=== PATIENT | male | born 2000 | race Caucasian/White ===

== ENCOUNTER 2020-09-26 19:50 | Emergency (ER) | payer OTHER ==
[2020-09-26 23:24] VITALS: BP 127/84
[2020-09-27 00:52] LABS: Basophils % (Auto) 0.5 % (0.0-1.8); Eosinophils # (Auto) 0.1 K/mm3 (0.0-0.4); Eosinophils % (Auto) 2.1 % (0.0-4.3); Hematocrit 48.2 % (35.5-45.6); Hemoglobin 16.4 gm/dl (11.8-15.2); Lymphocytes # (Auto) 2.5 K/mm3 (1.2-5.4); Lymphocytes % (Auto) 35.6 % (13.4-35.0); Mean Corpuscular HGB Conc 34 % (32-34); Mean Corpuscular Volume 94 fl (84-94); Monocytes # (Auto) 0.6 K/mm3 (0.0-0.8); Platelet Count 264 K/mm3 (140-440); Red Blood Count 5.14 M/mm3 (3.65-5.03); Red Cell Distribution Width 12.6 % (13.2-15.2)
[2020-09-27 00:54] LABS: Bilirubin,Urine NEG (Negative); Blood,Urine NEG (Negative); Color,Urine Yellow (Yellow); Mucus,Urine 1+ /HPF; Protein,Urine <15 mg/dL mg/dL (Negative); RBC,Urine < 1.0 /HPF (0.0-6.0); Urobilinogen,Urine < 2.0 mg/dL (<2.0)
--- NOTE | 2020-09-27 02:33 | Emergency Department Report ---
ED Abdominal Pain HPI - General Chief Complaint: Abdominal Pain Stated Complaint: GROIN PAIN Source: patient Mode of arrival: Ambulatory Limitations: No Limitations - History of Present Illness Initial Comments: Patient is a 19-year-old -[place] male with no past medical history presents to the ED with complaint of acute onset persistent diffuse upper abdominal pain intermittently for the last 2 days ago, worse in the last 8 hours. Patient states that he initially thought that he was constipated and took some laxatives and had significant diarrhea afterwards. Patient states that the abdominal pain has been intermittent and feels like gas moving around in his abdomen. Patient denies nausea, vomiting, dizziness, syncope, constipation, chest pain, shortness of breath, testicular pain, dysuria, urinary frequency and urgency, hematuria, fever and chills. MD Complaint: abdominal pain (Diffuse upper abdominal pain) -: Sudden, days(s) (2) Location: LUQ, epigastric Radiation: none Migration to: no migration Severity: mild Severity scale (0 -10): 3 Quality: cramping, dull Consistency: intermittent Improves With: nothing Worsens With: nothing Context: other (Suspected gas pain) Associated Symptoms: denies other symptoms, anorexia. denies: nausea, vomiting, diarrhea, chills, dysuria, hematemesis, hematochezia, hematuria, syncope, other - Related Data Previous Rx's Medication Instructions Recorded Last Taken Type Dicyclomine [Bentyl] 20 mg PO Q6H PRN #30 tablet 09/27/20 Unknown Rx Famotidine [Pepcid] 20 mg PO BID #60 tablet 09/27/20 Unknown Rx Ondansetron [Zofran Odt] 4 mg PO Q8HR PRN #5 tab.rapdis 09/27/20 Unknown Rx ED Review of Systems ROS: Stated complaint: GROIN PAIN Other details as noted in HPI Constitutional: denies: chills, fever Eyes: denies: eye pain, eye discharge, vision change ENT: denies: ear pain, throat pain Respiratory: denies: cough, shortness of breath, wheezing Cardiovascular: denies: chest pain, palpitations Endocrine: no symptoms reported Gastrointestinal: abdominal pain. denies: nausea, vomiting, diarrhea Genitourinary: denies: urgency, dysuria Musculoskeletal: denies: back pain, joint swelling, arthralgia Skin: denies: rash, lesions Neurological: denies: headache, weakness, paresthesias Psychiatric: denies: anxiety, depression Hematological/Lymphatic: denies: easy bleeding, easy bruising ED Past Medical Hx - Medications Home Medications: Home Medications Medication Instructions Recorded Confirmed Last Taken Type Dicyclomine [Bentyl] 20 mg PO Q6H PRN #30 tablet 09/27/20 Unknown Rx Famotidine [Pepcid] 20 mg PO BID #60 tablet 09/27/20 Unknown Rx Ondansetron [Zofran Odt] 4 mg PO Q8HR PRN #5 tab.rapdis 09/27/20 Unknown Rx ED Physical Exam - General Limitations: No Limitations General appearance: alert, in no apparent distress - Head Head exam: Present: atraumatic, normocephalic, normal inspection - Eye Eye exam: Present: normal appearance, PERRL, EOMI Pupils: Present: normal accommodation - ENT ENT exam: Present: normal exam, normal orophraynx, mucous membranes moist, TM's normal bilaterally, normal external ear exam - Neck Neck exam: Present: normal inspection, full ROM - Respiratory Respiratory exam: Present: normal lung sounds bilaterally. Absent: respiratory distress, wheezes, rales, rhonchi, chest wall tenderness, accessory muscle use, prolonged expiratory, other - Cardiovascular Cardiovascular Exam: Present: regular rate, normal rhythm, normal heart sounds. Absent: systolic murmur, diastolic murmur, rubs, gallop - GI/Abdominal GI/Abdominal exam: Present: soft, normal bowel sounds. Absent: distended, tenderness, guarding, rebound, hyperactive bowel sounds, hypoactive bowel sounds, organomegaly - Extremities Exam Extremities exam: Present: normal inspection, full ROM, normal capillary refill - Back Exam Back exam: Present: normal inspection, full ROM. Absent: tenderness, CVA ten derness (R), CVA tenderness (L), muscle spasm, paraspinal tenderness, vertebral tenderness - Neurological Exam Neurological exam: Present: alert, oriented X3, CN II-XII intact, normal gait, reflexes normal - Psychiatric Psychiatric exam: Present: normal affect, normal mood - Skin Skin exam: Present: warm, dry, intact, normal color. Absent: rash ED Course Vital Signs 09/26/20 23:19 Temperature 98.0 F Pulse Rate 72 Respiratory 18 Rate Blood Pressure 127/84 O2 Sat by Pulse 100 Oximetry ED Medical Decision Making - Lab Data Result diagrams: 09/27/20 00:12 - Medical Decision Making This is a 19-year-old -[place] male with no past medical history presents to the ED with complaint of acute onset persistent diffuse upper abdominal pain intermittently for the last 2 days ago, worse in the last 8 h ours. Patient states that he initially thought that he was constipated and took some laxatives and had significant diarrhea afterwards. Patient states that the abdominal pain has been intermittent and feels like gas moving around in his abdomen. In the ED, patient is alert and oriented x3 and is not in any distress. Lab test results were reviewed and are all nonactionable and physical exam is unremarkable. Patient will discharge home on medication and advised to follow-up with his primary care physician in 5 to 7 days for reevaluation. Patient is advised return to the ED immediately if symptoms get worse. - Differential Diagnosis GERD; gastroenteritis; constipation; Critical care attestation.: If time is entered above; I have spent that time in minutes in the direct care of this critically ill patient, excluding procedure time. ED Disposition Clinical Impression: Abdominal pain in male GERD (gastroesophageal reflux disease) Qualifiers: Esophagitis presence: esophagitis presence not specified Qualified Code(s): K21.9 - Gastro-esophageal reflux disease without esophagitis Disposition: DC-01 TO HOME OR SELFCARE Is pt being admited?: No Does the pt Need Aspirin: No Condition: Stable Instructions: Abdominal Pain, Adult, [id number], Gastroesophageal Reflux Disease, Adult, [id number] Additional Instructions: Take medication with food, drink plenty of fluids and follow-up with your primary care physician in 3 to 5 days for reevaluation. Return to the ED immediately if symptoms get worse. Prescriptions: Dicyclomine [Bentyl] 20 mg PO Q6H PRN #30 tablet PRN Reason: Abdominal pain Famotidine [Pepcid] 20 mg PO BID #60 tablet Ondansetron [Zofran Odt] 4 mg PO Q8HR PRN #5 tab.rapdis PRN Reason: Nausea Referrals: [facility] [Provider Group] - 3-5 Days Forms: Work/School Release Form(ED) Time of Disposition: 02:24 Print Language: [id number]
== END 2020-09-27 02:30 | disposition home or self-care (01) ==
LOC: ED 19:50
DX: K21.9 Gastro-esophageal reflux disease without esophagitis (principal); R10.12 Left upper quadrant pain; R10.13 Epigastric pain; Z79.899 Other long term (current) drug therapy
CPT/HCPCS: 36415; 81001; 83690; 85025